=== PATIENT | male | born 1960 | race Caucasian/White ===

== ENCOUNTER 2016-08-23 20:07 | Emergency (ER) | payer OTHER | END 2016-08-24 00:15 | disposition home or self-care (01) | LOC: ER 20:07 | DX: S22.31XA Fracture of one rib, right side, initial encounter for closed fracture (principal); W19.XXXA Unspecified fall, initial encounter; R07.9 Chest pain, unspecified; M54.9 Dorsalgia, unspecified; F17.210 Nicotine dependence, cigarettes, uncomplicated | CPT/HCPCS: 71100; 71250; 96372; 99283-25 ==